=== PATIENT | female | born 1965 | race Hispanic/Latino ===

== ENCOUNTER 2018-01-10 08:10 | Emergency (ER) | payer MEDICARE ==
[2018-01-10 08:17] VITALS: BMI 34.7
--- NOTE | 2018-01-10 11:12 | ED PDOC ---
HPI: Back Time Seen by Provider: 01/10/18 09:05 Chief Complaint (Nursing): Back Pain Chief Complaint (Provider): rib pain History Per: Patient History/Exam Limitations: no limitations Onset/Duration Of Symptoms: Hrs Current Symptoms Are (Timing): Still Present Quality Of Discomfort: Sharp Severity: Moderate Exacerbating Factor(s): Turning, Movement Past Medical History Reviewed: Historical Data, Nursing Documentation, Vital Signs Vital Signs: Last Vital Signs Temp 97 F L 01/10/18 08:16 Pulse 88 01/10/18 08:16 Resp BP 161/87 H 01/10/18 08:16 Pulse Ox 97 01/10/18 08:16 - Medical History PMH: Anxiety, Back Problems, Depression - Surgical History Surgical History: Back Surgery (to L3 ) - Family History Family History: States: No Known Family Hx - Home Medications Home Medications: Ambulatory Orders Medication Instructions Recorded Ibuprofen [Motrin] 600 mg PO TID PRN #30 tab 08/22/15 diaZEpam [Valium] 5 mg PO Q8 PRN #16 tab 08/22/15 oxyCODONE/Acetaminophen [Percocet 1 ea PO Q6 PRN #20 tab 08/22/15 5/325 mg Tab] Ibuprofen [Motrin Tab] 600 mg PO TID #15 tab 01/10/18 traMADol [Ultram] 50 mg PO TID PRN #10 tab 01/10/18 - Allergies Allergies/Adverse Reactions: Allergies Allergy/AdvReac Type Severity Reaction Status Date / Time No Known Allergies Allergy Verified 08/22/15 18:20 Review of Systems ROS Statement: Except As Marked, All Systems Reviewed And Found Negative Constitutional: Negative for: Fever, Chills Cardiovascular: Negative for: Chest Pain Respiratory: Negative for: Shortness of Breath Gastrointestinal: Negative for: Abdominal Pain Physical Exam - Reviewed Nursing Documentation Reviewed: Yes Vital Signs Reviewed: Yes - Physical Exam Appears: Positive for: Well Head Exam: Positive for: ATRAUMATIC Skin: Positive for: Normal Color Cardiovascular/Chest: Positive for: Regular Rate, Rhythm Respiratory: Positive for: Normal Breath Sounds. Negative for: Respiratory Distress Gastrointestinal/Abdominal: Positive for: Normal Exam, Soft, Other (No eccymosis, no RUQ tenderness.). Negative for: Tenderness - ECG O2 Sat by Pulse Oximetry: 97 Medical Decision Making Medical Decision Making: IM toradol given. CXR ordered. CXR: no obvious rib fx, (-) ptx, (-) pleural effusion, (-) atelectasis Pt. feeling much better, lungs clear, pulse ox: 99% on RA. Incentive spirometer given with instruction. Disposition - Clinical Impression Clinical Impression: Contusion of rib on right side - Patient ED Disposition Is Patient to be Admitted: No Counseled Patient/Family Regarding: Studies Performed, Diagnosis, Need For Followup, Rx Given - Disposition Disposition: Routine/Home Disposition Time: 11:13 Condition: IMPROVED Additional Instructions: incentive spirometer every hour while awake. Return to ED if worse, difficulty breathing, abdominal pain, vomiting, or other concerns. Prescriptions: Ibuprofen [Motrin Tab] 600 mg PO TID #15 tab traMADol [Ultram] 50 mg PO TID PRN #10 tab PRN Reason: Pain, Moderate (4-7) Instructions: Bruised Rib (DC) Forms: [employer] ([place])
[2018-01-10 11:25] VITALS: BP 152/82; PULSE 74; RESP 18; TEMP 97.9; O2SAT 98
--- NOTE | 2018-01-10 14:30 | RAD ---
Date of service: 01/10/2018 HISTORY: fall, right rib pain COMPARISON: No prior. TECHNIQUE: Chest PA and lateral FINDINGS: LUNGS: No active pulmonary disease. PLEURA: No significant pleural effusion identified. No pneumothorax apparent. CARDIOVASCULAR: No aortic atherosclerotic calcification present. Upper limits normal cardiac size. No pulmonary vascular congestion. OSSEOUS STRUCTURES: No significant abnormalities. VISUALIZED UPPER ABDOMEN: Normal. OTHER FINDINGS: None. IMPRESSION: Upper limits normal cardiac silhouette. No acute infiltrate, pleural effusion or pneumothorax. No pulmonary vascular congestion.
== END 2018-01-10 11:25 | disposition home or self-care (01) ==
LOC: H.ER 08:10
DX: S20.211A Contusion of right front wall of thorax, initial encounter (principal); W19.XXXA Unspecified fall, initial encounter; Y92.002 Bathroom of unspecified non-institutional (private) residence as the place of occurrence of the external cause
CPT/HCPCS: 71046; 96372; 99283; J1885